=== PATIENT | female | born 2000 | race Hispanic/Latino ===

== ENCOUNTER 2018-09-29 09:09 | Emergency (ER) | payer SELFPAY ==
[2018-09-29] MEDS ORDERED: FAMOTIDINE 20 MG/2 ML VIAL IV ONE (10:15)
[2018-09-29] MEDS ORDERED: NA CHLORIDE 0.9% 1,000 ML ONE (10:15)
[2018-09-29] MEDS ORDERED: KETOROLAC 30 MG/ML INJ ONE (10:15)
[2018-09-29] MEDS ORDERED: ONDANSETRON 4 MG/2 ML VIAL ONE (10:15)
[2018-09-29 10:16] LABS: Absolute Lymphocytes (CBC) 1.5 K/uL (0.7-4.9); Absolute Monocytes 0.5 K/uL (0.1-1.3); Absolute Neutrophil 3.7 K/uL (1.8-8.0); Basophils % 0.5 % (0-1.3); Eosinophils % 0.7 % (0-4.4); Hematocrit 41.4 % (36.0-45.0); Lymphocytes % 26.5 % (15.3-44.8); MPV 11.3 fL (7.6-11.3); Monocytes % 8.9 % (3.3-12.3); RBC Red Blood Cell Count 4.52 M/uL (3.86-4.86)
[2018-09-29 10:32] LABS: ALT/SGPT 46 U/L (12-78); AST/SGOT 27 U/L (15-37); Albumin 3.5 g/dL (3.4-5.0); Alkaline Phosphatase 66 U/L (45-117); BUN Blood Urea Nitrogen 11 mg/dL (7-18); Bicarbonate 26 mmol/L (21-32); Bilirubin Direct < 0.1 mg/dL (0-0.2); Bilirubin Total 0.5 mg/dL (0.2-1.0); Glucose Level 94 mg/dL (74-106); Lipase 192 U/L (73-393); Potassium 4.2 mmol/L (3.5-5.1); Protein, Total 7.3 g/dL (6.4-8.2); Sodium Level 142 mmol/L (136-145)
[2018-09-29 10:32] LABS: Urine Blood NEGATIVE (NEG); Urine Glucose NEGATIVE (NEG); Urine Protein NEGATIVE (NEG)
--- NOTE | 2018-09-29 11:22 | EDPHYS ---
Physician Documentation [facility] Name: Joelle Martinez Age: 18 yrs Sex: Female : 2000 Arrival Date: 09/29/2018 Time: 09:10 Bed 20 Private MD: ED Physician Alpesh Thomas HPI: 09/29 09:40 This 18 yrs old Female presents to ER via Ambulatory with complaints of cp abdominal pain. 09:40 The patient presents with abdominal pain in the upper abdomen. Onset: The cp symptoms/episode began/occurred gradually, and became worse today. 09:40 The symptoms do not radiate. Associated signs and symptoms: Pertinent positives: cp nausea, Pertinent negatives: constipation, diarrhea, dysuria, fever, vomiting. The patient has been recently seen at an urgent care, this week, for similar complaints, diagnosed with H. pylori and prescribed omeprazole and antibiotics. 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 - Social history:: Smoking status: Patient/guardian denies using tobacco. - Ebola Screening: : No symptoms or risks identified at this time. ROS: 09:45 Constitutional: Negative for body aches, chills, fever, poor PO intake. cp 09:45 Eyes: Negative for injury, pain, redness, and discharge. cp 09:45 ENT: Negative for drainage from ear(s), ear pain, sore throat, difficulty swallowing, difficulty handling secretions. 09:45 Cardiovascular: Negative for chest pain, palpitations. 09:45 Respiratory: Negative for cough, shortness of breath, wheezing. 09:45 Abdomen/GI: Positive for abdominal pain, nausea, Negative for vomiting, diarrhea, constipation, dysphagia, black/tarry stool, rectal bleeding. 09:45 Back: Negative for pain at rest, pain with movement, radiated pain. 09:45 Skin: Negative for cellulitis, rash. 09:45 Neuro: Negative for altered mental status, headache, weakness. 09:45 All other systems are negative. Exam: 10:00 Constitutional: The patient appears in no acute distress, alert, awake, non-toxic, well cp developed, well nourished. 10:00 Head/Face: Normocephalic, atraumatic. cp 10:00 Eyes: Periorbital structures: appear normal, Conjunctiva: normal, no exudate, no injection, Sclera: no appreciated abnormality, Lids and lashes: appear normal, bilaterally. 10:00 ENT: External ear(s): are unremarkable, Nose: is normal, Mouth: Lips: moist, Oral mucosa: pink and intact, moist, Posterior pharynx: is normal, airway is patent, no erythema, no exudate. 10:00 Chest/axilla: Inspection: normal, Palpation: is normal, no crepitus, no tenderness. 10:00 Cardiovascular: Rate: normal, Rhythm: regular. 10:00 Respiratory: the patient does not display signs of respiratory distress, Respirations: normal, no use of accessory muscles, no retractions, no splinting, no tachypnea, labored breathing, is not present, Breath sounds: are clear throughout, no decreased breath sounds, no stridor, no wheezing. 10:00 Abdomen/GI: Inspection: abdomen appears normal, Bowel sounds: active, all quadrants, Palpation: soft, in all quadrants, moderate abdominal tenderness, in all quadrants, rebound tenderness, is not appreciated, involuntary guarding, is not appreciated. 10:00 Back: pain, is absent, ROM is normal. Vital Signs: 09:12 BP 137 / 91; Pulse 90; Resp 16 S; Temp 99.0(O); Pulse Ox 99% on R/A; Pain 9/10; aa5 11:30 BP 128 / 84; Pulse 84; Resp 18; Pulse Ox 99% on R/A; Pain 0/10; em MDM: 09:21 Patient medically screened. cp 10:00 Differential diagnosis: cholecystitis, Cholelithiasis, gastritis, gastroesophageal cp reflux disease, pancreatitis, Peptic Ulcer Disease, Perf. Duodenal Ulcer, Perf. Gastric Ulcer, Ureterolithiasis, urinary tract infection. 11:20 Data reviewed: vital signs, nurses notes, lab test result(s), radiologic studies, plain cp films. 11:20 Test interpretation: by ED physician or midlevel provider: xrays of abdomen negative cp for obstruction or perforation. Counseling: I had a detailed discussion with the patient and/or guardian regarding: the historical points, exam findings, and any diagnostic results supporting the discharge/admit diagnosis, lab results, radiology results. 11:20 Response to treatment: the patient's symptoms have markedly improved after treatment, cp VSS. Pain markedly improved. Will discharge to home for continued monitoring. 09/29 09:34 Order name: Basic Metabolic Panel cp 09/29 09:34 Order name: CBC with Diff; Complete Time: 10:26 cp 09/29 10:26 Interpretation: Reviewed. cp 09/29 09:34 Order name: Creatinine for Radiology; Complete Time: 10:39 cp 09/29 09:34 Order name: Hepatic Function; Complete Time: 10:39 cp 09/29 09:34 Order name: Lipase; Complete Time: 10:39 cp 09/29 09:37 Order name: Basic Metabolic Panel; Complete Time: 10:39 EDMS 09/29 09:34 Order name: IV Saline Lock; Complete Time: 09:53 cp 09/29 10:08 Order name: Urine Dipstick--Ancillary (enter results); Complete Time: 10:39 eb 09/29 10:08 Order name: Urine --Ancillary (enter results); Complete Time: 10:39 eb 09/29 10:46 Order name: XRAY Abdomen With Erect cp 09/29 09:34 Order name: Labs collected and sent; Complete Time: 09:53 cp 09/29 09:34 Order name: Urine Dipstick-Ancillary (obtain specimen); Complete Time: 10:12 cp 09/29 09:34 Order name: Urine Test (obtain specimen); Complete Time: 10:12 cp Administered Medications: 10:06 Drug: Zofran 4 mg Route: IVP; Site: right antecubital; ss 10:50 Follow up: Response: No adverse reaction; Nausea is decreased em 10:06 Drug: NS 0.9% 1000 ml Route: IV; Rate: 1 bolus; Site: right antecubital; ss 10:50 Follow up: IV Status: Completed infusion; IV Intake: 1000ml em 10:08 Drug: Pepcid 20 mg Route: IVP; Site: right antecubital; ss 10:50 Follow up: Response: No adverse reaction; Pain is decreased em 10:12 Drug: TORadol - Ketorolac 15 mg Route: IVP; Site: right antecubital; ss 10:50 Follow up: Response: No adverse reaction; Pain is decreased em Disposition: 13:34 Co-signature as Attending Physician, Alpesh Thomas MD. rn Disposition: 09/29/18 11:21 Discharged to Home. Impression: Unspecified abdominal pain. - Condition is Stable. - Discharge Instructions: Abdominal Pain, Adult, Gastritis, Adult. - Prescriptions for Carafate 1 gram Oral Tablet - take 1 tablet by ORAL route 4 times per day take on an empty stomach, beginning on waking and last dose at bedtime. dissolve in small amount of warm water prior to ingestion; 100 tablet. Zofran 4 mg Oral Tablet - take 1 tablet by ORAL route every 12 hours As needed; 20 tablet. - Work release form, Medication Reconciliation Form, Thank You Letter, Antibiotic Education, Prescription Opioid Use form. - Follow up: Guillermo Quintanilla MD; When: 1 week; Reason: symptoms continue. - Problem is new. - Symptoms have improved. Signatures: Dispatcher [employer] EDUT Eulalio Pino, FARM AGENT FARM AGENT em Alpesh Thomas MD MD rn Calderon, Audri RN RN aa5 Bridget Bettencourt RN RN ss Amish Dunham, TC PA cp Corrections: (The following items were deleted from the chart) 11:31 11:21 09/29/2018 11:21 Discharged to Home. Impression: Unspecified abdominal pain. em Condition is Stable. Forms are Medication Reconciliation Form, Thank You Letter, Antibiotic Education, Prescription Opioid Use. Follow up: Guillermo Quintanilla; When: 1 week; Reason: symptoms continue. Problem is new. Symptoms have improved. cp
--- NOTE | 2018-09-29 11:22 | ER ---
Nurse's Notes [facility] Name: Joelle Martinez Age: 18 yrs Sex: Female : 2000 Arrival Date: 09/29/2018 Time: 09:10 Bed 20 Private MD: Diagnosis: Unspecified abdominal pain Presentation: 09/29 09:10 Presenting complaint: Patient states: "I was positive for H. Pylori on Tuesday and I aa5 am taking clarithromycin, amoxicillin, and omeprazole but I just want something for the pain". 09:10 Transition of care: patient was not received from another setting of care. Onset of aa5 symptoms was 2018. Risk Assessment: Do you want to hurt yourself or someone else? Patient reports no desire to harm self or others. Initial Sepsis Screen: Does the patient meet any 2 criteria? No. Patient's initial sepsis screen is negative. Does the patient have a suspected source of infection? No. Patient's initial sepsis screen is negative. Care prior to arrival: None. 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 - Social history:: Smoking status: Patient/guardian denies using tobacco. - Ebola Screening: : No symptoms or risks identified at this time. Screenin:00 Abuse screen: Denies threats or abuse. Nutritional screening: No deficits noted. em Tuberculosis screening: No symptoms or risk factors identified. Fall Risk None identified. Assessment: 10:00 General: Appears in no apparent distress. comfortable, Behavior is calm, cooperative, em Denies fever. Pain: Complains of pain in abdomen Pain currently is 2 out of 10 on a pain scale. Neuro: Level of Consciousness is awake, alert, obeys commands, Oriented to person, place, time, situation. Cardiovascular: Capillary refill < 3 seconds Patient's skin is warm and dry. Respiratory: Airway is patent Respiratory effort is even, unlabored, Respiratory pattern is regular, symmetrical. GI: Abdomen is flat, Reports lower abdominal pain, upper abdominal pain, nausea, Patient currently denies vomiting. Derm: Skin is intact, is healthy with good turgor, Skin is pink, warm \\T\\ dry. Musculoskeletal: Capillary refill < 3 seconds, Range of motion: intact in all extremities. 10:50 Reassessment: Patient appears in no apparent distress at this time. Patient and/or em family updated on plan of care and expected duration. Pain level reassessed. Patient is alert, oriented x 3, equal unlabored respirations, skin warm/dry/pink. reports feeling better, request for IV to be D/C, provider notified, no new orders received. Vital Signs: 09:12 BP 137 / 91; Pulse 90; Resp 16 S; Temp 99.0(O); Pulse Ox 99% on R/A; Pain 9/10; aa5 11:30 BP 128 / 84; Pulse 84; Resp 18; Pulse Ox 99% on R/A; Pain 0/10; em ED Course: 09:10 Patient arrived in ED. aa5 09:10 Arm band placed on Patient placed in an exam room, on a stretcher. aa5 09:14 Eulalio Pino LVN is Primary Nurse. em 09:15 Amish Dunham PA is PHCP. cp 09:15 Alpesh Thomas MD is Attending Physician. cp 09:23 Triage completed. aa5 09:51 Initial lab(s) drawn, by me, sent to lab. Inserted saline lock: 20 gauge in right dh3 antecubital area, using aseptic technique. Blood collected. 10:00 Patient has correct armband on for positive identification. Bed in low position. Call em light in reach. Adult w/ patient. Pulse ox on. NIBP on. 10:11 Urine collected: clean catch specimen, clear. dh3 11:01 IV discontinued, intact, bleeding controlled, No redness/swelling at site. Pressure em dressing applied. 11:14 XRAY Abdomen With Erect In Process Unspecified. EDMS 11:21 Guillermo Quintanilla MD is Referral Physician. cp 11:30 No provider procedures requiring assistance completed. em Administered Medications: 10:06 Drug: Zofran 4 mg Route: IVP; Site: right antecubital; ss 10:50 Follow up: Response: No adverse reaction; Nausea is decreased em 10:06 Drug: NS 0.9% 1000 ml Route: IV; Rate: 1 bolus; Site: right antecubital; ss 10:50 Follow up: IV Status: Completed infusion; IV Intake: 1000ml em 10:08 Drug: Pepcid 20 mg Route: IVP; Site: right antecubital; ss 10:50 Follow up: Response: No adverse reaction; Pain is decreased em 10:12 Drug: TORadol - Ketorolac 15 mg Route: IVP; Site: right antecubital; ss 10:50 Follow up: Response: No adverse reaction; Pain is decreased em Intake: 10:50 IV: 1000ml; Total: 1000ml. em Outcome: 11:21 Discharge ordered by MD. cp 11:30 Discharged to home ambulatory, with family. em 11:30 Condition: good 11:30 Discharge instructions given to patient, family, Instructed on discharge instructions, follow up and referral plans. medication usage, Demonstrated understanding of instructions, follow-up care, medications, Prescriptions given X 2. 11:31 Patient left the ED. em Signatures: Dispatcher [employer] EDEulalio Morris, MIDWIFE MIDWIFE em Alexa Contreras, RN RN aa5 Bridget Bettencourt RN RN Amish Izaguirre, PA [place] [id number]
--- NOTE | 2018-09-29 11:35 | RAD REPORT ---
EXAM DESCRIPTION: RAD - Abdomen W Erect - 09/29/2018 11:12 am CLINICAL HISTORY: Abdominal pain FINDINGS: Air is present within nondilated small bowel in a nonspecific fashion. Air within the colo n is diminished Free air is not seen beneath the diaphragm. Small calcification within the left pelvis is nonspecific but may represent a phlebolith
== END 2018-09-29 11:31 | disposition home or self-care (01) ==
LOC: ER 09:09
DX: R10.10 Upper abdominal pain, unspecified (principal); R11.0 Nausea
CPT/HCPCS: 36415; 74019; 80048; 80076; 81003; 81025; 83690; 85025; 96361; 96374; 96375; 99284; J2405; J7030